=== PATIENT | female | born 1985 | race Caucasian/White ===

== ENCOUNTER 2020-03-24 16:03 | Outpatient (CLI) | payer OTHER, SELFPAY ==
[2020-03-24 16:19] LABS: Hematocrit 38.1 % (37.0-47.0); Hemoglobin 13.1 g/dL (12.0-15.0); Mean Corpuscular HGB Conc 34.4 g/dl (32-36); Mean Corpuscular Hemoglobin 29.6 pg (26-34); Mean Platelet Volume 10.2 fl (7.4-10.4); Platelet Count Result 220 k/mm3 (150-375); Red Blood Count 4.43 M/mm3 (4.2-5.4); Red Cell Distribution Width 11.7 % (11.5-14.5); White Blood Count 4.7 K/mm3 (4.5-10.0)
[2020-03-24 16:32] LABS: Blood Urea Nitrogen 7 mg/dL (7-17); Carbon Dioxide 30 mmol/L (22-30); Chloride 101 mmol/L (98-107); Estimated Glomerular Filt Rate > 60; Glucose 87 mg/dL (65-105); Potassium 3.8 mmol/L (3.4-5.0); Sodium 136 mmol/L (137-145)
== END 2020-03-24 16:04 | disposition home or self-care (01) ==
PROVIDERS: PCP Family Medicine; Visit Provider Physician Assistant Medical
DX: R19.7 Diarrhea, unspecified (principal)
CPT/HCPCS: 36415; 80048; 85027

== ENCOUNTER 2020-11-27 08:06 | Outpatient (CLI) | payer OTHER, SELFPAY ==
--- NOTE | 2020-11-27 08:26 | ECG_ITS ---
Measurements Intervals [place] Rate: 89 P: 64 OH: 128 QRS: 77 QRSD: 108 T: 36 QT: 340 QTc: 414 Interpretive Statements SINUS RHYTHM INCOMPLETE RIGHT BUNDLE BRANCH BLOCK NONSPECIFIC T-WAVE ABNORMALITY- INFERIOR LEADS BORDERLINE ECG Electronically Signed On 11-27-2020 8:46:57 HABILITATION TRAINING SPECIALIST by Roni Fry D.O.
[2020-11-27 08:30] LABS: Hematocrit 37.9 % (37.0-47.0); Hemoglobin 13.3 g/dL (12.0-15.0); Mean Corpuscular HGB Conc 35.1 g/dl (32-36); Mean Corpuscular Hemoglobin 30.4 pg (26-34); Mean Corpuscular Volume 86.7 fl (80-100); Mean Platelet Volume 10.5 fl (7.4-10.4); Platelet Count Result 231 k/mm3 (150-375); Red Blood Count 4.37 M/mm3 (4.2-5.4); Red Cell Distribution Width 12.1 % (11.5-14.5); White Blood Count 3.7 K/mm3 (4.5-10.0)
[2020-11-27 08:41] LABS: Anion Gap 4 mmol/L (8-16); Blood Urea Nitrogen 15 mg/dL (7-17); Calcium 8.6 mg/dL (8.4-10.2); Carbon Dioxide 27 mmol/L (22-30); Chloride 107 mmol/L (98-107); Cholesterol 129 mg/dL (0-200); Estimated Glomerular Filt Rate > 60; Glucose 80 mg/dL (65-105); HDL Direct 55 mg/dL; Potassium 4.1 mmol/L (3.4-5.0); Sodium 138 mmol/L (137-145); Triglycerides 53 mg/dL (<150)
[2020-11-27 08:52] LABS: LDL Cholesterol Direct 55 mg/dL
== END 2020-11-27 08:07 | disposition home or self-care (01) ==
PROVIDERS: PCP Family Medicine; Visit Provider Family Medicine
DX: R00.0 Tachycardia, unspecified (principal); Z13.220 Encounter for screening for lipoid disorders; I45.10 Unspecified right bundle-branch block
CPT/HCPCS: 36415; 80048; 80061; 84443; 85027; 93005

== ENCOUNTER 2021-01-05 12:27 | Outpatient (CLI) | payer OTHER, SELFPAY ==
--- NOTE | 2021-01-05 12:46 | ECHO_ITS ---
Patient Info Name: Elina Ackerman Age: 35 years : 1985 Gender: Female Ht: 62 in Wt: 120 lbs BSA: 1.55 m2 HR: 81 bpm BP: 118 / 74 mmHg Heart Rhythm: Sinus Rhythm Exam Date: 01/05/2021 1:09 PM Exam Location: [facility] Patient Status: Outpatient Admit Date: 01/05/2021 Staff Ordering Physician: Judy Norris Plastic Surgery Nurse: Emma Selby RDCS Attending Provider: Judy Norris Exam Type: CA echo doppler color flow Study Info Indications R00.0 - Tachycardia, unspecified Complete two-dimensional, color flow and Doppler transthoracic echocardiogram is performed. Summary 1. Complete two-dimensional, color flow and Doppler transthoracic echocardiogram is performed. 2. Left ventricular chamber dimension is normal. 3. Left ventricular systolic function is normal, estimated at 60-65%. 4. The left ventricular diastolic function is normal. 5. E/e' 4 is not elevated. 6. There is trace pulmonic regurgitation. Left Ventricle E/e' 4 is not elevated. Left ventricular chamber dimension is normal. Left ventricular systolic function is normal, estimated at 60-65%. The left ventricular diastolic function is normal. Right Ventricle Right ventricular chamber dimension is normal. Right ventricular systolic function is normal. Left Atria Left atrial chamber dimension is normal. Right Atria Right atrial chamber dimension is normal. Aortic Valve The aortic valve is trileaflet. There is no aortic valve stenosis. There is no aortic valve regurgitation. Pulmonic Valve There is trace pulmonic regurgitation. Mitral Valve There is no mitral valve stenosis. There is no mitral valve regurgitation. Tricuspid Valve There is no tricuspid valve regurgitation. Pericardium/Pleural There is no pericardial effusion. Inferior Vena Cava Normal inferior vena cava with >50% collapse upon inspiration consistent with normal right atrial pressure, 5 mmHg. Aorta The aortic root size at the sinus of Valsalva is normal. Left Ventricular Outflow Tract Name Value Normal LVOT 2D LVOT Diameter 2.1 cm LVOT Doppler LVOT Peak Velocity 93 cm/s LVOT Peak Gradient 2 mmHg LVOT Mean Gradient 1 mmHg LVOT VTI 17 cm LVOT VTI/AV VTI Ratio 0.8 LVOT Stroke Volume 60 ml LVOT CO 10.9 l/min LVOT CI 7.0 l/min/m2 Pulmonic Valve Name Value Normal RVOT Doppler RVOT Peak Gradient 2 mmHg PV Doppler PV Peak Velocity 80 cm/s PV Peak Gradient 3 mmHg Mitral Valve -
== END 2021-01-05 12:28 | disposition home or self-care (01) ==
PROVIDERS: PCP Family Medicine; Visit Provider Nurse Practitioner Family
DX: R00.0 Tachycardia, unspecified (principal); I45.10 Unspecified right bundle-branch block
CPT/HCPCS: 93306

== ENCOUNTER 2021-06-09 14:33 | Outpatient (CLI) | payer OTHER, SELFPAY ==
[2021-06-09 14:58] LABS: Hematocrit 37.5 % (37.0-47.0); Mean Corpuscular HGB Conc 34.7 g/dl (32-36); Mean Corpuscular Hemoglobin 30.2 pg (26-34); Mean Platelet Volume 10.9 fl (7.4-10.4); Platelet Count Result 254 k/mm3 (150-375); Red Blood Count 4.31 M/mm3 (4.2-5.4); Red Cell Distribution Width 11.5 % (11.5-14.5)
[2021-06-09 15:21] LABS: Anion Gap 7 mmol/L (8-16); Blood Urea Nitrogen 12 mg/dL (7-17); Calcium 9.2 mg/dL (8.4-10.2); Carbon Dioxide 27 mmol/L (22-30); Chloride 99 mmol/L (98-107); Estimated Glomerular Filt Rate > 60; Glucose 89 mg/dL (65-110); Potassium 3.7 mmol/L (3.4-5.0); Sodium 133 mmol/L (137-145)
[2021-06-09 15:54] LABS: Lymphocytes Absolute Manual 3.15 K/mm3 (1.1-4.5); Monocytes Absolute Manual 0.14 K/mm3 (0.1-0.90); Monocytes Percent Manual 2 % (3-9); Neutrophils Percent Manual 53 % (46-73); Platelet Estimate Adequate (Adequate); Total Cells Counted 100
== END 2021-06-09 14:34 | disposition home or self-care (01) ==
LOC: ANHLAB 14:35
PROVIDERS: PCP Family Medicine; Visit Provider Physician Assistant Medical
DX: R51.9 Headache, unspecified (principal)
CPT/HCPCS: 36415; 80048; 84443; 85025

== ENCOUNTER 2021-06-23 13:27 | Outpatient (CLI) | payer OTHER, SELFPAY ==
[2021-06-23 14:05] LABS: Anion Gap 8 mmol/L (8-16); Blood Urea Nitrogen 12 mg/dL (7-17); Calcium 9.4 mg/dL (8.4-10.2); Carbon Dioxide 27 mmol/L (22-30); Chloride 102 mmol/L (98-107); Estimated Glomerular Filt Rate > 60; Glucose 82 mg/dL (65-110); Potassium 3.9 mmol/L (3.4-5.0); Sodium 137 mmol/L (137-145)
== END 2021-06-23 13:28 | disposition home or self-care (01) ==
LOC: ANHLAB 13:29
PROVIDERS: PCP Family Medicine; Visit Provider Physician Assistant Medical
DX: E87.1 Hypo-osmolality and hyponatremia (principal)
CPT/HCPCS: 36415; 80048

== ENCOUNTER 2021-11-25 09:41 | Outpatient (CLI) | payer OTHER, SELFPAY ==
--- NOTE | 2021-11-25 11:00 | NEURO_ITS ---
Impression: # Complains of right hand/forearm pain. # Normal nerve conduction study. # No Carpal Tunnel Syndrome or ulnar neuropathy. # Normal needle/EMG exam. Nerve Conduction Studies Anti Sensory Summary Table Stim Site NR Peak (ms) P-T Amp (?V) Site1 Site2 Delta-P (ms) Dist (cm) Vega (m/s) Right Median Anti Sensory (2-3nd Digit) Wrist 2.8 62.3 Wrist 2-3nd Digit 2.8 14.0 50 Wrist 2.9 79.6 Wrist 2-3nd Digit 2.8 14.0 50 Right Radial Anti Sensory (Base 1st Digit) Wrist 2.3 42.4 Wrist Base 1st Digit 2.3 0.0 Right Ulnar Anti Sensory (5th Digit) Wrist 2.1 40.5 Wrist 5th Digit 2.1 14.0 67 Motor Summary Table Stim Site NR Onset (ms) O-P Amp (mV) Site1 Site2 Delta-0 (ms) Dist (cm) Vega (m/s) Right Median Motor (Abd Poll Brev) Wrist 3.3 13.1 Elbow Wrist 4.7 29.0 62 Elbow 8.0 11.8 Right Ulnar Motor (Abd Dig Minimi) Wrist 2.8 10.3 A Elbow Wrist 4.5 28.0 62 A Elbow 7.3 9.8 F Wave Studies NR F-Lat (ms) L-R F-Lat (ms) Right Median (Mrkrs) (Abd Poll Brev) 25.56 Right Ulnar (Mrkrs) (Abd Dig Min) 26.54 EMG Side Muscle Nerve Root Ins Act Fibs Amp Dur Recrt Comment Right 1stDorInt Ulnar C8-T1 Nml Nml Nml Nml Nml Right Ext Indicis Radial (Post Int) C7-8 Nml Nml Nml Nml Nml Right Ext Digitorum Radial (Post Int) C7-8 Nml Nml Nml Nml Nml Right BrachioRad Radial C5-6 Nml Nml Nml Nml Nml Right PronatorTeres Median C6-7 Nml Nml Nml Nml Nml Right Abd Poll Brev Median C8-T1 Nml Nml Nml Nml Nml MTDD
== END 2021-11-25 09:42 | disposition home or self-care (01) ==
LOC: ANHNEURO 09:43
PROVIDERS: PCP Family Medicine; Visit Provider Orthopaedic Surgery
DX: G56.20 Lesion of ulnar nerve, unspecified upper limb (principal)
CPT/HCPCS: 95886; 95909

== ENCOUNTER 2021-12-21 16:23 | Outpatient (CLI) | payer OTHER, SELFPAY ==
[2021-12-21 16:44] LABS: Anion Gap 4 mmol/L (8-16); Blood Urea Nitrogen 13 mg/dL (7-17); Calcium 8.8 mg/dL (8.4-10.2); Carbon Dioxide 31 mmol/L (22-30); Chloride 103 mmol/L (98-107); Estimated Glomerular Filt Rate > 60; Glucose 90 mg/dL (65-110); Potassium 3.9 mmol/L (3.4-5.0); Sodium 138 mmol/L (137-145)
== END 2021-12-21 16:24 | disposition home or self-care (01) ==
PROVIDERS: PCP Family Medicine; Visit Provider Nurse Practitioner Family
DX: E87.1 Hypo-osmolality and hyponatremia (principal)
CPT/HCPCS: 36415; 80048

== ENCOUNTER 2021-12-31 16:32 | Outpatient (CLI) | payer OTHER, SELFPAY ==
[2021-12-31 17:38] LABS: Vitamin D 25 Hydroxy 72.1 ng/mL
== END 2021-12-31 16:33 | disposition home or self-care (01) ==
LOC: ANHLAB 16:34
PROVIDERS: PCP Family Medicine; Visit Provider Obstetrics & Gynecology Gynecology
DX: E55.9 Vitamin D deficiency, unspecified (principal)
CPT/HCPCS: 36415; 82306

== ENCOUNTER 2022-01-06 00:13 | Day surgery (SDC) | payer OTHER, SELFPAY ==
[2021-12-28 08:41] VITALS: BMI 21.4
--- NOTE | 2021-12-28 08:50 | PC.NURSE ---
Report to the Outpatient Waiting Room, entrance under the green pavilion located off [facility], at time 0600 on date 01/06/22. OR Time: 0730. - You and your visitor will be asked a series of questions to screen for COVID 19 for your protection. - A mask is required within the hospital. One visitor will be allowed to accompany the patient into the hospital. Patients visitor will be instructed to remain with patient at all times or leave the building. We will allow the visitor to come back to the postoperative area when patient is ready. Preoperative COVID Testing Requirements: No COVID Test needed if: (proof is required; if not received patient will have Rapid Test prior to entry) - Patient has received COVID Vaccine at least 14 days prior to procedure date or - Patient has positive COVID test result within last 90 days of surgery date. COVID Test needed if above criteria is not met Patients may have clear liquids (water, carbonated beverages, clear teas, apple juice) until 3 hours prior to surgery with a maximum of 20 ounces. - No food from midnight until time of surgery Take the following medications with a SIP of water the morning of surgery: MILNACIPRAN, TRAMADOL (IF NEEDED) Medications to discontinue per physician: VITAMINS/SUPPLEMENTS Date to take last dose: 01/02/22 Please no make-up, nail thai, hairspray, perfume, deodorant, or body powder the day of surgery. No jewelry (including any body piercings) or valuables the day of surgery, leave them at home. Please take a shower or bath the night before, or the morning of, surgery with an antibacterial soap. Wear comfortable, loose fitting clothing. - Jewelry must be removed prior to entering the operating room. Rings and piercings that are not removed may be cut off. - The hospital will not accept responsibility for valuables. - Please leave all valuables, including medications, at home the day of surgery. If you are going home after surgery, a licensed car pick up driver must drive you home. - NO public transportation without another adult. - We recommend that an adult stay with you for 24 hours following discharge. - We also recommend that you do not drive, make important decision, drink alcoholic beverages, or take any drugs that were not prescribed by your health care provider for at least 24 hours after your discharge time. Follow any additional instructions given to you from your surgeon. Telephone instructions given to BABATUNDE LEWIS and asked if any additional questions and then verbalized understanding. Patient advised to call surgeon office or pre surgery nurse liaison [phone] if any additional questions.
[2022-01-06] VITALS (8 sets, daily range): BP systolic 104–128; BP diastolic 68–77; PULSE 94–108; RESP 14–16; TEMP 36.2–36.7; O2SAT 97–100
[2022-01-06] MEDS: LACTATED RINGERS 1,000 ML 30 ML IV CONT (06:25)
[2022-01-06] MEDS: ACETAMINOPHEN 500 MG TABLET 1000 MG PO (06:27)
[2022-01-06] MEDS: KETOROLAC 15 MG/ML VIAL (*BKC) IV PUSH (06:27)
--- NOTE | 2022-01-06 07:12 | WPDHPUPDATE1 ---
History and Physical Update Update Date/Time: 01/06/22 07:12 History and Physical has been reviewed, including an updated exam of the patient. There are NO changes in the patient's condition. Risks, benefits, and alternatives have been discussed and questions answered. Patient agrees to proceed with procedure.
--- NOTE | 2022-01-06 07:17 | WPDANESEPPF ---
Anes - Initial Pre Proc Eval Procedure: Operation Date: 01/06/22 07:30 Proposed Procedures p Right Ulnar Nerve Decompression - Kranthi Rich MD Date/Time: 01/06/22 07:17 Surgeon: Kranthi Rich MD Pre Op Diagnosis: right ulnar neuropathy Patient Data Age: 36 Gender: F Height: 1.57 m Weight: 53.3 kg Last Vital Signs Temp 98.1 F 01/06/22 06:05 Pulse 108 H 01/06/22 06:05 Resp 16 01/06/22 06:05 BP 128/77 01/06/22 06:05 Pulse Ox 100 01/06/22 06:05 Allergies Allergy/AdvReac Type Severity Reaction Status Date / Time No Known Allergies Verified 12/28/21 08:39 Home Medications Medication Instructions Recorded Confirmed Type milnacipran 50 mg tablet 50 mg PO BID #180 tablet 08/26/21 01/06/22 Rx celecoxib 200 mg capsule 200 mg PO DAILY #90 cap 11/30/21 01/06/22 Rx tramadol 50 mg tablet 50 mg PO Q4H PRN #120 tablet 12/09/21 01/06/22 Rx ascorbic acid (vitamin C) [Vitamin 500 mg PO DAILY 12/28/21 01/06/22 History C] cetirizine [Zyrtec] 10 mg PO DAILY 12/28/21 01/06/22 History echinacea 200 mg PO DAILY 12/28/21 01/06/22 History lactobacillus combo no.11 1 cap PO DAILY 12/28/21 01/06/22 History [Probiotic] fluticasone propionate [Flonase] 1 spray INTRANASAL DAILY 01/06/22 01/06/22 History Patient hx anesthesia problems: none Family hx anesthesia problems: none Results Review: All pre-operative results and documents have been reviewed as part of the pre-operative evaluation. [facility] Past Medical History Medical History Fibromyalgia Screening for lipid disorders Tachycardia Surgical History Surgical History History of section (~2012) History of cholecystectomy (~2004) History of tonsillectomy (~2011) Family History Family History Father Hypertension Grandparent Hypertension Cerebrovascular accident Other Family history of arthritis Family history of rheumatoid arthritis Social History Social History Smoking status: Never smoker Alcohol intake: never Substance use: never Substance use type: does not use Living arrangements: with family Gender identity (if verbalized by the patient): Female Sexual Orientation (if Verbalized by the Patient): Straight or Heterosexual Spiritual care concerns: No Anes - Eval Final PreProcedure Day of Procedure 01/06/22 07:17 Patient weight: normal Heart: regular rate and rhythm Lungs: clear to auscultation Airway: Mallampati scale class II Neurological: alert and oriented Last oral intake: >/= 8 hours ASA classification: II Emergent: no Anesthetic plan: proceed Anesthesia type and monitoring: general LMA and standard monitoring Results Review: All pre-operative results and documents have been reviewed as part of the pre-operative evaluation. Informed Consent: The patient's anesthetic plan and its attendant risks and benefits were discussed with the patient/family/POA. Questions were solicited and answers provided to the satisfaction of the patient/family/POA.
[2022-01-06] MEDS: ceFAZolin 2 GM/D5W 50 ML 2 GM/50 ML BAG IVPB (07:27)
[2022-01-06] MEDS: SCOPOLAMINE 1.5 MG PATCH TRANSDERM (07:35)
[2022-01-06] MEDS: fentaNYL CITRATE INJ (*CRX) 100 MCG/2 ML VIAL 25 MCG IV PUSH ×3 (09:00→09:11)
[2022-01-06] MEDS: oxyCODONE HCL (*CRX) 5 MG TAB IR PO (09:50)
--- NOTE | 2022-01-06 17:16 | P.OP_ITS ---
Procedure Note - Detailed Date of Procedure 01/06/22 Pre-op Diagnosis Right ulnar neuropathy at the elbow Post-op Diagnosis Same Procedure Performed Right cubital tunnel decompression Surgeon Kranthi Rich MD Industrial Manufacturing Technician Malia Carlos PA-C Anesthesia General Description of Procedure Operative details. After sedation was administer, the arm was prepped and draped in the usual sterile fashion. The proposed incision was marked using typical anatomic landmarks. The limb was exsanguinated and the tourniquet inflated to 250 millimeters of mercury. A longitudinal incision was created posterior to the medial epicondyle. Careful dissection was brought down to the ulnar nerve. It was identified proximally and dissected to the cubital tunnel retinaculum. Careful dissection released the cubital tunnel retinaculum. The dissection was carried out to the flexor carpi the palmaris. The 1st motor branch was carefully identified and protected. Attention was turned proximally in the nerve was released proximal to the intermuscular septum. The arm was flexed and the nerve was assessed. The nerve was stable. The course of the nerve was very nice without evidence of compression or instability. The tourniquet was released to assure that there was no significant bleeding. Meticulous hemostasis was maintained. The subcutaneous tissues were closed with interrupted 3-0 Monocryl suture followed by running 4-0 Monocryl suture and Steri-Strips. Sterile dressing was applied with a soft splint at the wrist and a hard splint at the elbow. The patient was extubated and brought to the recovery room in stable condition. Estimated Blood Loss -1.0 Pathology None sent Complications No immediate complications Condition Stable Disposition PACU
== END 2022-01-06 10:25 | disposition home or self-care (01) ==
PROVIDERS: PCP Family Medicine; Visit Provider Orthopaedic Surgery
PROC: (CPT 64718; principal; 2022-01-06 07:30)
DX: G56.21 Lesion of ulnar nerve, right upper limb (principal); M79.7 Fibromyalgia
CPT/HCPCS: 64718; A4565; A9270; J0690; J1100; J1885; J2250; J2405; J2704; J3010; J7120

== ENCOUNTER 2022-05-19 13:27 | Outpatient (CLI) | payer OTHER, SELFPAY ==
[2022-05-19 14:54] LABS: Anion Gap 8 mmol/L (8-16); Blood Urea Nitrogen 12 mg/dL (7-17); Calcium 9.3 mg/dL (8.4-10.2); Carbon Dioxide 29 mmol/L (22-30); Chloride 99 mmol/L (98-107); Estimated Glomerular Filt Rate > 60; Glucose 84 mg/dL (65-110); Sodium 136 mmol/L (137-145)
== END 2022-05-19 13:28 | disposition home or self-care (01) ==
LOC: ANHLAB 13:28
PROVIDERS: PCP Family Medicine; Visit Provider Nurse Practitioner Family
DX: E87.1 Hypo-osmolality and hyponatremia (principal); R51.9 Headache, unspecified; Z13.29 Encounter for screening for other suspected endocrine disorder
CPT/HCPCS: 36415; 80048; 84443

== ENCOUNTER 2022-06-24 13:44 | Outpatient (CLI) | payer OTHER, SELFPAY ==
--- NOTE | ~2022-06-24 | MR_ITS ---
EXAMINATION: MR brain/brain stem wo/w con DATE: 06/24/2022 14:27 INDICATION: Headache. TECHNIQUE: Magnetic resonance imaging (MRI) of the brain and brainstem was performed without and with 10 mL MultiHance intravenous contrast. COMPARISON: None. FINDINGS: The cerebellar tonsils extend 9 mm inferior to foramen magnum, consistent with Chiari I mal formation. There are approximately 11 scattered foci of increased T2-weighted signal intensity in the cerebral white matter. There is no acute ischemic infarct or intracranial hemorrhage. The ventricles are normal. The orbits are normal. The mastoid air cells are normal. There is mild mucosal thickenin g in the maxillary sinuses. IMPRESSION: 1. Chiari I malformation. 2. Mild nonspecific cerebral white matter disease. The differential diagnosis includes premature gym manager gonzalo small vessel ischemic disease (especially if the patient has cardiovascular risk factors), demyel inating disease such as multiple sclerosis, drug abuse, vasculitis, or reactive astrocytosis (gliosis ) secondary to nonspecific etiology. Reviewed, dictated and finalized at location A. IMPRESSION: 1. Chiari I malformation. 2. Mild nonspecific cerebral white matter disease. The differential diagnosis i ncludes premature chronic small vessel ischemic disease (especially if the radha ent has cardiovascular risk factors), demyelinating disease such as multiple sc lerosis, drug abuse, vasculitis, or reactive astrocytosis (gliosis) secondary t o nonspecific etiology.
== END 2022-06-24 13:45 | disposition home or self-care (01) ==
LOC: ANHIMG 13:46
PROVIDERS: PCP Family Medicine; Visit Provider Nurse Practitioner Family
DX: R51.9 Headache, unspecified (principal); R93.0 Abnormal findings on diagnostic imaging of skull and head, not elsewhere classified
CPT/HCPCS: 70553; A9577

== ENCOUNTER 2022-07-13 15:21 | Outpatient (CLI) | payer OTHER, SELFPAY ==
--- NOTE | ~2022-07-13 | MR_ITS ---
EXAMINATION: MR thoracic spine wo/w con DATE: 07/13/2022 16:41 INDICATION: Chiari I malformation. Headache. TECHNIQUE: Magnetic resonance imaging (MRI) of the thoracic spine was performed without and with 10 m L MultiHance intravenous contrast. COMPARISON: None FINDINGS: Bone alignment is normal. Vertebral body heights and intervertebral disc heights are normal . The discs do not extend beyond the endplate margins. The facet joints are normal and thoracic spine . No neural foraminal stenosis or central canal stenosis. The spinal cord signal intensity is normal. The conus medullaris is at L1. IMPRESSION: 1. Normal thoracic spine. Reviewed, dictated and finalized at location A. IMPRESSION: 1. Normal thoracic spine.
--- NOTE | ~2022-07-13 | MR_ITS ---
EXAMINATION: MR cervical spine wo/w con DATE: 07/13/2022 16:41 INDICATION: Chiari I malformation. Headache. TECHNIQUE: Magnetic resonance imaging (MRI) of the cervical spine was performed without and with 10 m L MultiHance intravenous contrast. COMPARISON: None FINDINGS: Bone alignment is normal. Vertebral body heights are normal. Intervertebral disc heights ar e normal. The cerebellar tonsils extend 7 mm inferior to foramen magnum, consistent with Chiari I mal formation. The spinal cord signal intensity is normal. No syrinx. The following disc levels are speci fically discussed: C2-C3: The disc does not extend beyond the endplate margin. There is no uncovertebral joint osteoarth ritis. There is mild right facet joint osteoarthritis. There is no neural foraminal stenosis. There i s no central canal stenosis. C3-C4: The disc does not extend beyond the endplate margin. There is no uncovertebral joint osteoarth ritis. There is mild bilateral facet joint osteoarthritis. There is no neural foraminal stenosis. The re is no central canal stenosis. C4-C5: There is a central protrusion. There is no uncovertebral joint osteoarthritis. There is mild b ilateral facet joint osteoarthritis. There is no neural foraminal stenosis. There is no central canal stenosis. C5-C6: The disc is bulging. There is moderate bilateral uncovertebral joint osteoarthritis. There is mild bilateral facet joint osteoarthritis. There is no neural foraminal stenosis. There is no central canal stenosis. C6-C7: There is a central extrusion. There is no uncovertebral joint osteoarthritis. There is mild ri ght facet joint osteoarthritis. There is no neural foraminal stenosis. There is mild central canal st enosis. C7-T1: The disc does not extend beyond the endplate margin. There is no uncovertebral joint osteoarth ritis. There is moderate bilateral facet joint osteoarthritis. There is no neural foraminal stenosis. There is no central canal stenosis. IMPRESSION: 1. Mild cervical spondylosis. 2. Chiari 1 malformation. Reviewed, dictated and finalized at location A.
== END 2022-07-13 15:22 | disposition home or self-care (01) ==
PROVIDERS: PCP Family Medicine; Visit Provider Psychiatry & Neurology Neurology
DX: R51.9 Headache, unspecified (principal); M47.812 Spondylosis without myelopathy or radiculopathy, cervical region; G93.5 Compression of brain
CPT/HCPCS: 72156; 72157; A9577

== ENCOUNTER 2023-01-12 12:11 | Outpatient (CLI) | payer OTHER, SELFPAY ==
[2023-01-12 13:34] LABS: Vitamin D 25 Hydroxy 86.7 ng/mL
== END 2023-01-12 12:12 | disposition home or self-care (01) ==
LOC: ANHLAB 12:13
PROVIDERS: PCP Family Medicine; Visit Provider Advanced Practice Midwife
DX: E55.9 Vitamin D deficiency, unspecified (principal)
CPT/HCPCS: 36415; 82306

== ENCOUNTER 2023-05-10 11:15 | Outpatient (CLI) | payer OTHER, SELFPAY ==
--- NOTE | ~2023-05-10 | MMUS_ITS ---
EXAMINATION: MM diagnostic jonathan BI w wally, US breast RT limited HISTORY: Right breast pain TECHNIQUE: Craniocaudal, mediolateral, and mediolateral oblique 3-D tomosynthesis images of the breas ts were performed and synthetic 2-D images were generated. CAD analysis was submitted and interpreted . High resolution limited right breast ultrasound was performed. COMPARISON: None, baseline BREAST PARENCHYMAL COMPOSITION: The breasts are extremely dense, which lowers the sensitivity of mamm ography. FINDINGS: MAMMOGRAPHIC FINDINGS: No suspicious mass, calcification, or architectural distortion are identified in either breast to sug gest malignancy. No mammographic correlate is identified for the patient's right breast pain. ULTRASOUND: There is no evidence of focal abnormal solid or cystic mass in the vicinity of the patient's right br east pain. IMPRESSION: 1. No specific mammographic or sonographic correlate is identified for the patient's right breast james n Further evaluation at this time should be based on clinical assessment. Continued follow-up physica l examination is recommended. 2. Recommend routine screening mammography beginning at age 40. BI-RADS Category 1: Negative Reviewed, dictated and finalized at location A. IMPRESSION: 1. No specific mammographic or sonographic correlate is identified for the radha ent's right breast pain Further evaluation at this time should be based on clin ical assessment. Continued follow-up physical examination is recommended. 2. Recommend routine screening mammography beginning at age 40. BI-RADS Category 1: Negative
== END 2023-05-10 11:16 | disposition home or self-care (01) ==
PROVIDERS: PCP Family Medicine; Visit Provider Nurse Practitioner
DX: N64.4 Mastodynia (principal); N64.59 Other signs and symptoms in breast
CPT/HCPCS: 76642; 77062; 77066; G0279

== ENCOUNTER 2023-07-11 08:03 | Outpatient (CLI) | payer OTHER, SELFPAY ==
[2023-07-11 08:56] LABS: Alanine Aminotransferase 186 U/L (6-35); Albumin Level 4.5 g/dL (3.5-5.1); Alkaline Phosphatase 80 U/L (38-126); Anion Gap 5 mmol/L (8-16); Aspartate Amino Transferase 79 U/L (14-36); Bilirubin,Total 0.4 mg/dL (0.2-1.3); Blood Urea Nitrogen 9 mg/dL (7-17); Calcium 8.8 mg/dL (8.4-10.2); Carbon Dioxide 30 mmol/L (22-30); Chloride 103 mmol/L (98-107); Cholesterol 148 mg/dL (0-200); Estimated Glomerular Filt Rate > 60; Glucose 76 mg/dL (65-110); HDL Direct 59 mg/dL; Magnesium 2.1 mg/dL (1.6-2.3); Potassium 3.9 mmol/L (3.4-5.0); Sodium 138 mmol/L (137-145); Triglycerides 68 mg/dL (<150)
[2023-07-11 09:07] LABS: LDL Cholesterol Direct 71 mg/dL
== END 2023-07-11 08:04 | disposition home or self-care (01) ==
LOC: ANHLAB 08:04
PROVIDERS: PCP Family Medicine; Visit Provider Nurse Practitioner Family
DX: R51.9 Headache, unspecified (principal); Z13.29 Encounter for screening for other suspected endocrine disorder; E87.1 Hypo-osmolality and hyponatremia
CPT/HCPCS: 36415; 80053; 80061; 83735; 84443

== ENCOUNTER 2023-07-14 09:15 | Outpatient (RCR) | payer OTHER, SELFPAY ==
--- NOTE | 2023-06-26 13:34 | OTOPEVAL1 ---
Assessment and note entered by LEODAN Villasenor/Ildefonso, CHT Evaluation Information Assessment Status Evaluation Diagnosis Ulnar nerve entrapment, right elbow; right carpal tunnel release Subjective Information 06/07/23: ulnar nerve transposition and carpal tunnel release Patient presents today in a long arm orthosis, positioning the right elbow resting at 130 degrees with the wrist in neutral. She is right handed. Reports paresthesias in the small and ring fingers comes and goes . No longer reporting paresthesias in the radial 3 digits. States she is favoring the left UE for ADL tasks at this time. Unable to wash her face with the right due to decreased elbow flexibility. She is also limited on lifting per MD orders. Reported Pain Level Pain Score 0: Self Report Additional Pain Score Comments No pain at rest. Just some pulling and tightness . Assessment OT Clinical Summary Patient referred to outpatient OT with a decline in right UE use following right ulnar transposition at the elbow as well as right carpal tunnel release. She presents today with some residual stiffness and weakness from being post surgical, immobilized, and using the UE less during ADLs. Skilled OT indicated to maximize functional flexibilty and strength through HEP instruction and progression, use of manual therapy techniques, modalities, and therapeutic exercises and activities. Plan of Care Interventions Therapeutic Exercise,Manual Therapy,Therapeutic Activities,Hot Pack/Cold Pack,Ultrasound,Paraffin OT Services Indicated Yes Treatment Frequency and 1x/week for 5 weeks Duration These treatments will address the objective and functional deficits as defined above. The patient will be advanced safely and appropriately in order for the patient to progress towards his/her prior level of function. Additional exercises will be introduced and as well as a comprehensive home exercise program upon discharge, if needed, ?to ensure carryover of functional gains achieved in the clinic. This treatment plan has been reviewed and agreement upon by the patient.
--- NOTE | 2023-06-26 13:34 | OPREHPOC ---
Outpatient Therapy Plan of Care This is a Multidisciplinary Plan of Care that may contain components documented by all disciplines (PT, OT, and ST.) OT Problem 1 OT Problem #1 Knowledge Deficit OT Goal 1 Goal 1. Patient to be independent with instructed materials. Target Visit 5 OT Problem 2 OT Problem #2 Impaired Range of Motion OT Goal 1 Goal Increase active ROM of the right UE: - elbow flexion to 135 - wrist extension to 75
--- NOTE | 2023-07-31 14:11 | OTOPDC ---
Assessment and note entered by Blane Torres, LEODAN/Ildefonso, CHT Discharge Summary 07/31/23 OT Clinical Summary Elina is s/p right ulnar nerve transposition and carpal tunnel release (06/07/23). She progressed to weaning out of the long arm orthosis and ROM returned to normal limits. She reports she is doing well with using her arm and no longer experiencing any ADL limitations. She called today to report that she will continue with her home program and she plans to go back to work at the beginning of August. No further skilled OT indicated at this time. D/C.
== END 2023-07-31 15:02 | disposition home or self-care (01) ==
LOC: ANHOT 09:15
PROVIDERS: PCP Family Medicine
DX: G56.21 Lesion of ulnar nerve, right upper limb (principal); G56.01 Carpal tunnel syndrome, right upper limb
CPT/HCPCS: 97018; 97110; 97140; 97166; 99199

== ENCOUNTER 2023-08-07 10:06 | Outpatient (CLI) | payer OTHER, SELFPAY ==
[2023-08-07 10:54] LABS: Alanine Aminotransferase 21 U/L (6-35); Albumin Level 4.5 g/dL (3.5-5.1); Alkaline Phosphatase 78 U/L (38-126); Aspartate Amino Transferase 24 U/L (14-36); Bilirubin,Total 0.3 mg/dL (0.2-1.3)
[2023-08-07 11:31] LABS: Hepatitis B Surface Antigen Negative (Negative)
[2023-08-07 11:49] LABS: Hepatitis C Virus Antibody Negative (Negative)
[2023-08-07 12:01] LABS: Hepatitis B Core IgM Result Negative (Negative)
[2023-08-07 12:52] LABS: HAV RESULT Negative (Negative)
[2023-08-09 15:30] LABS: GGT 30 U/L (3-50)
== END 2023-08-07 10:07 | disposition home or self-care (01) ==
LOC: ANHLAB 10:06
PROVIDERS: PCP Family Medicine; Visit Provider Nurse Practitioner Family
DX: R74.8 Abnormal levels of other serum enzymes (principal)
CPT/HCPCS: 36415; 80074; 80076; 82977

== ENCOUNTER 2023-10-22 12:42 | Emergency (ER) | payer OTHER, SELFPAY ==
[2023-10-22 12:53] VITALS: BP 122/75; PULSE 96; RESP 16; TEMP 36.6; O2SAT 100
--- NOTE | 2023-10-22 12:55 | ED.GENADULT ---
HPI - General Adult General Chief complaint: Upper Respiratory Infection Stated complaint: sinus and chest congestion Time Seen by Provider: 10/22/23 12:55 Source: patient Mode of arrival: ambulatory Limitations: no limitations History of Present Illness HPI narrative: 38-year-old female patient presents to the [facility] with complaints of 9 days of congestion and sinus pressure. Patient states she gets this often and normally can take it with some Mucinex and Sudafed which is what she has been taking. Patient states she does take Flonase daily. Denies fevers, body aches or chills. Denies any ongoing cough. Denies chest pain or shortness of breath. Denies any abdominal pain, nausea, vomiting or diarrhea. Related Data Home Medications Medication Instructions Recorded Confirmed lactobacillus combo no.11 15 1 cap PO DAILY 12/28/21 10/22/23 billion cell sprinkle capsule (Probiotic) ergocalciferol (vitamin D2) 1,000 5,000 tablet PO DAILY 01/06/22 10/22/23 unit tablet fluticasone propionate 50 1 spray intranasal DAILY 01/06/22 10/22/23 mcg/actuation nasal spray,suspension magnesium 500 mg tablet 500 mg PO DAILY 01/06/22 10/22/23 levocetirizine 5 mg tablet (Xyzal) 5 mg PO DAILY 06/21/23 10/22/23 Allergies Allergy/AdvReac Type Severity Reaction Status Date / Time No Known Allergies Allergy Verified 10/22/23 12:53 Review of Systems Review of Systems: CONSTITUTIONAL: Denies fever, chills, or sweats. EYES: Denies visual changes, redness, or discharge. ENT: Positive rhinorrhea, congestion, denies sore throat, positive bilateral ear pressure. CARDIOVASCULAR: Denies chest pain, palpitations, or edema. RESPIRATORY: positive mild intermittent cough , denies dyspnea. GASTROINTESTINAL: Denies abdominal pain, nausea, vomiting, or diarrhea. GENITOURINARY: Denies dysuria or hematuria. SKIN: Denies rash or itching. MUSCULOSKELETAL: Denies back pain, joint pain, or myalgia. NEUROLOGIC: Denies headache, numbness, or weakness. PSYCHIATRIC: Denies anxiety or depression. [facility] Past Medical History Medical History BMI 20.0-20.9, adult Body mass index [BMI] 22.0-22.9, adult Fibromyalgia Screening for lipid disorders Tachycardia Ulnar nerve entrapment at elbow Surgical History Surgical History History of section (~2012) History of cholecystectomy (~2004) History of elbow surgery (~01/06/22) Right ulnar nerve decompression History of tonsillectomy (~2011) Family History Family History Father Hypertension Grandparent Hypertension Cerebrovascular accident Mother No problems noted. Sibling No problems noted. Other Family history of arthritis Family history of rheumatoid arthritis Social History Social History Smoking status: Never smoker Second hand tobacco smoke exposure: No Alcohol intake: former Substance use: never Substance use type: does not use Lack of Transportation: No Lack of Food: Never True Current Housing: I Have Housing Concerned About Future Housing: No Difficulty Paying Gas/Electric Bills: No Difficulty Paying for Meds: No Currently Unemployed: No Education: Associate Degree Difficulty w/ Childcare or Family Care: No Living arrangements: with family Occupation/Education: occupation Additional occupation/education comments: RN [employer] Gender identity (if verbalized by the patient): Female Sexual Orientation (if Verbalized by the Patient): Straight or Heterosexual Spiritual care concerns: No Comments At the time of my signature I agree with nursing past medical history, surgical, social, and family history. There is no relevant family history pertinent to the presenting complaint. Exam
== END 2023-10-22 13:13 | disposition home or self-care (01) ==
PROVIDERS: Emergency Provider Nurse Practitioner Family; PCP Family Medicine
DX: J32.9 Chronic sinusitis, unspecified (principal); Z79.899 Other long term (current) drug therapy
CPT/HCPCS: 99213; G0463

== ENCOUNTER 2024-01-30 08:21 | Outpatient (CLI) | payer OTHER, SELFPAY ==
[2024-01-30 09:04] LABS: Basophils Percent Auto 0.9 % (0.2-1.2); Eosinophils Absolute Auto 0.1 K/mm3 (0-0.3); Eosinophils Percent Auto 2.4 % (0-4.4); Hematocrit 41.7 % (37.0-47.0); Immature Granulocyte Absolute 0.01 K/mm3 (0.00-0.031); Immature Granulocyte Percent A 0.2 % (0-0.5); Lymphocytes Absolute Auto 1.46 K/mm3 (0.9-3.2); Lymphocytes Percent Auto 34.4 % (18.3-44.2); Mean Corpuscular HGB Conc 33.6 g/dl (32-36); Mean Corpuscular Hemoglobin 30.3 pg (26-34); Mean Corpuscular Volume 90.3 fl (80-100); Monocytes Absolute Auto 0.4 K/mm3 (0.1-0.6); Monocytes Percent Auto 9.4 % (2.6-8.5); Neutrophils Absolute Auto 2.2 K/mm3 (1.3-6.7); Neutrophils Percent Auto 52.7 % (45.5-73.1); Platelet Count Result 264 k/mm3 (150-375); Red Blood Count 4.62 M/mm3 (4.2-5.4); Red Cell Distribution Width 11.6 % (11.5-14.5); White Blood Count 4.3 K/mm3 (4.5-10.0)
[2024-01-30 09:23] LABS: Alanine Aminotransferase 209 U/L (6-35); Albumin Level 4.5 g/dL (3.5-5.1); Alkaline Phosphatase 85 U/L (38-126); Anion Gap 6 mmol/L (4-12); Aspartate Amino Transferase 115 U/L (14-36); Bilirubin,Total 0.5 mg/dL (0.2-1.3); Blood Urea Nitrogen 11 mg/dL (7-17); Calcium 9.2 mg/dL (8.4-10.2); Carbon Dioxide 29 mmol/L (22-30); Chloride 105 mmol/L (98-107); Cholesterol 143 mg/dL (0-200); Estimated Glomerular Filt Rate > 60; Glucose 84 mg/dL (65-110); HDL Direct 55 mg/dL; Magnesium 2.3 mg/dL (1.6-2.3); Potassium 3.8 mmol/L (3.4-5.0); Sodium 140 mmol/L (137-145); Triglycerides 76 mg/dL (<150)
[2024-01-30 09:29] LABS: Iron 110 ug/dL (37-170)
[2024-01-30 09:35] LABS: LDL Cholesterol Direct 75 mg/dL
[2024-01-30 09:41] LABS: Percent Iron Saturation 32 % (20-50)
[2024-01-30 10:29] LABS: Folic Acid 10.5 ng/mL (2.76->20)
[2024-01-30 10:58] LABS: Vitamin D 25 Hydroxy 66.5 ng/mL
== END 2024-01-30 08:22 | disposition home or self-care (01) ==
LOC: ANHLAB 08:22
PROVIDERS: PCP Family Medicine; Visit Provider Nurse Practitioner Adult Health
DX: M79.7 Fibromyalgia (principal); R53.83 Other fatigue; E83.42 Hypomagnesemia; Z13.220 Encounter for screening for lipoid disorders
CPT/HCPCS: 36415; 80053; 80061; 82306; 82607; 82746; 83540; 83550; 83735; 84443; 85025

== ENCOUNTER 2024-02-20 15:48 | Outpatient (CLI) | payer OTHER, SELFPAY ==
[2024-02-20 16:27] LABS: Alanine Aminotransferase 23 U/L (6-35); Albumin Level 4.5 g/dL (3.5-5.1); Alkaline Phosphatase 81 U/L (38-126); Aspartate Amino Transferase 24 U/L (14-36); Bilirubin,Total 0.3 mg/dL (0.2-1.3)
== END 2024-02-20 15:49 | disposition home or self-care (01) ==
LOC: ANHLAB 15:49
PROVIDERS: PCP Family Medicine; Visit Provider Nurse Practitioner Adult Health
DX: R79.89 Other specified abnormal findings of blood chemistry (principal)
CPT/HCPCS: 36415; 80076

== ENCOUNTER 2025-02-10 08:28 | Outpatient (CLI) | payer OTHER, SELFPAY ==
--- OUTSIDE RECORDS SUMMARY | 2025-02-10 08:43 | XMS_ITS | Clinical Summary ---
Author Organization [facility] Healthcare Address [address] [place] [id number] Care Team Providers Care Windscreen Fitter Name Role Phone Jarod Aguila MD Primary Care Provider [phone] Allergies No known active allergies Medications traMADol (ULTRAM) 50 mg tablet take 1 tablet by oral route every 6 hours as needed 0 0 09/29/20 15 Active Additional Information Patient taking differently:50 mgoral As needed, pain, Indications: Pain, Informant: Self, Reported on 05/08/2023 celecoxib (CeleBREX) 200 mg capsuleIndicat ions:Pain Take 1 capsule (200 mg total) by mouth every morning 12/11/19 23 Active Savella 50 mg tabletIndicati ons:Pain Take 1 tablet (50 mg total) by mouth 2 (two) times a day 12/10/19 23 Active levocetirizine (XYZAL) 5 mg tabletIndicati ons:Allergic Rhinitis Take 1 tablet (5 mg total) by mouth nightly Active fluticasone propionate (FLONASE) 50 mcg/actuation nasal sprayIndicatio ns:Allergic Rhinitis Administer 2 sprays into each nostril every morning Active magnesium oxide 400 mg magnesium capsuleIndicat ions:OTC Take 1 capsule by mouth nightly Active cholecalcifero l (VITAMIN D-3) 5,000 unit capsuleIndicat ions:Vitamin D Deficiency Take 1 capsule (5,000 Units total) by mouth daily with lunch Active acidophilus-pe ctin, citrus 100 million cell-10 mg capsuleIndicat ions:OTC Take 1 capsule by mouth daily with lunch Active DULoxetine DR MILLSALTA) 60 mg capsule Take 1 capsule (60 mg total) by mouth daily 06/02/20 20 Active cetirizine (ZyrTEC) 10 mg capsule Oral Active fluconazole (DIFLUCAN) 150 mg tablet Take 1 tablet (150 mg total) by mouth daily Take one tab now. Repeat in 7 days if symptoms persist. 2 tablet 10/12/20 24 025 Discontinued amoxicillin-cl avulanate (AUGMENTIN) 875-125 mg per tablet Take 1 tablet by mouth 2 (two) times a day for 10 days 20 tablet 01/26/20 25 025 fluconazole (DIFLUCAN) 150 mg tablet Take 1 tablet (150 mg total) by mouth once for 1 dose Take one tab now. Repeat in 7 days if symptoms persist. 2 tablet 01/26/20 25 025 Active Problems Problem Noted Date Diagnosed Date Acute non-recurrent pansinusitis 01/25/2025 Assessment & Plan (01/25/2025 12:46 PM CDT): Due to length of illness we will treat with antibiotic, please complete the whole course of antibiotics-no leftovers. Prescription for antibiotics sent. Reviewed potential benefits and potential side effects of augmentin. Aware to complete full course of antibiotic. To continue otc medications. Discussed nasal saline rinses/neti pots. Discussed need to increase fluid intake. May use 1 teaspoon honey every 4 hours as needed for cough, encourage use of hot tea or hot water with honey. May use vicks vapo rub on chest and bottom of feet before bed. Cool mist humidifier in bedroom. Lots of water, rest and handwashing, no sharing cups or utensils. If symptoms worsen including but not limited to shortness of breath, chest pain and/or increasing pain please notify office or present to Emergency Department. Cubital tunnel syndrome on right 03/15/2023 Carpal tunnel syndrome on right 03/15/2023 Encounters Date Type Department Care Team Description 01/25/2025 12:45 PM CDT Telemedicine [facility] Medical Group Virtual Care [address] [place] [phone] Shefali Centeno NP Acute non-recurrent pansinusitis (Primary Dx) 01/25/2025 Patient Self-Triage [facility] HealthCare/ Physicians [facility] [phone] Son Heath Provider from Last 3 Months Surgical History Surgery Date Site/Laterality Comments CHOLECYSTECTOMY 2005 SECTION 2013 TONSILLECTOMY 2012 ULNAR NERVE REPAIR 12/14/2021 - 01/13/2022 decompression Medical History Medical History Date Comments Sinusitis PONV (postoperative nausea and vomiting) scopolamine patch helpful Motion sickness Migraines Ulnar nerve compression Fibromyalgia Family History Medical History Relation Name Comments Hypertension Father Hypertension; Hypertension Maternal Grandmother Hyperte nsion; Hypertension Other Family history of Hypertension; Heart attack Paternal Grandfather Myocard ial Infarction; Cause of : Myocardial Infarction Hypertension Paternal Grandfather Hyperte nsion; Stroke Paternal Grandfather Stroke; Heart attack Paternal Grandmother Myocard ial Infarction; Cause of : Myocardial Infarction Hypertension Paternal Grandmother Hyperte nsion; Stroke Paternal Grandmother Stroke; Anesthesia problems Neg Hx Malig Hyperthermia Neg Hx Pseudochol deficiency Neg Hx Relation Name Status Comments Father Alive Maternal Grandmother Other Paternal Grandfather Paternal Grandmother Social History Tobacco Use Types Packs/Day Years Used Date Smoking Tobacco: Never Passive Smoke Exposure: Never Smokeless Tobacco: Never Tobacco Cessation:Counseling Given: Not Answered Alcohol Use Standard Drinks/Week Comments Yes 0 (1 standard drink = 0.6 oz pur e alcohol) Personal Safety Answer Date Recorded Have you ever been in or are you currently in a harmful physical or emotional relationship or is someone making you feel afraid or unsafe? 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 Gender Identity Female 01/25/2025 12:30 PM CDT Sexual Orientation Not on file Obstetrics History Last Filed Vital Signs Vital Sign Reading Time Taken Comments Blood Pressure 114/75 06/07/2023 1:30 PM CDT Pulse 97 06/07/2023 1:30 PM CDT Temperature 36.1 C (97 F) 06/07/2023 12:35 PM CDT Respiratory Rate 20 06/07/2023 1:30 PM CDT Oxygen Saturation 95% 06/07/2023 1:30 PM CDT Inhaled Oxygen Concentration - - Weight 49.9 kg (110 lb) 06/07/2023 10:28 AM CDT Height 157.5 cm (5' 2 ) 06/07/2023 10:28 AM CDT Body Mass Index 20.12 06/07/2023 10:28 AM CDT Plan of Treatment Health Maintenance Due Date Last Done Comments Cervical Cancer Screening 1986 Depression Screening 1986 Hepatitis C Screening 1986 DTaP/Tdap/Td Vaccine (1 - Tdap) 1997 Varicella Vaccines (1 of 2 - 13+ 2-dose series) 1999 Hepatitis B Screening 02/14/2004 Regular Well Visit/Exam 18-64 02/14/2004 Covid-19 Vaccine ( - 2023-2 5 season) 2024 12/30/2020, 12/09/2020 Influenza Vaccine (Season Ended) 2025 08/18/2023 HPV Vaccines Aged Out No longer eligi ble based on patient's age to complete this topic Pneumococcal vaccine <65 Aged Out No longer eligible based on patient's age to complete this topic Insurance [facility] [id number] [facility] [id number] [id number] Care Teams Windscreen Fitter Relationship Specialty Start Date End Date Jarod Aguila MD PCP - General 09/29/15
--- OUTSIDE RECORDS SUMMARY | 2025-02-10 08:43 | XMS_ITS | Clinical Summary ---
Author Organization [facility] Care Team Providers Care Supervisor Of Guidance And Testing Name Role Phone Unavailable Primary Care Provider Unavailabl e Social History Tobacco Use Types Packs/Day Years Used Date Smoking Tobacco: Never Assessed Comments Unknown Sex and Gender Information Value Date Recorded Sex Assigned at Not on file Legal Sex Female 10:13 AM CDT Gender Identity Not on file Sexual Orientation Not on file Plan of Treatment Health Maintenance Due Date Last Done Comments Hepatitis C Virus (HCV) Screening 1986 TdaP Immunization 1986 Hepatitis B Immunization (1 of 3 - 19+ 3-dose series) 2005 Pap Smear 2007 Cervical Cancer Screening (CCS) 02/14/2016 HPV/Cotest 02/14/2016 Influenza Immunization (#1) 2024 SARS-COV-2 Immunization ( season) 2024 Respiratory Syncytial Virus (RSV) Immunization (Adult) (1 - 1-dose 75+ series) 2061 Meningococcal Immunization (ACWY) Aged Out No longer eligible based on patient's age to complete this topic Pneumococcal Immunization Combined Aged Out No longer eligible based on patient's age to complete this topic Rotavirus Immunization Aged Out No lo nger eligible based on patient's age to complete this topic
--- OUTSIDE RECORDS SUMMARY | 2025-02-10 08:43 | XMS_ITS | Encounter Summary ---
Author Organization [facility] Address [address] [place] [address] Phone Care Team Providers Care Newspaper Photographer Name Role Phone Jarod Aguila MD Primary Care Provider [phone] Encounter Details Date Type Department Care Team (Late st Contact Info) Description 12/15/2017 Orders Only [facility] ProviderJulio MD [address] [place], [place] [id number] Social History Tobacco Use Types Packs/Day Years Used Date Smoking Tobacco: Never Alcohol Use Standard Drinks/Week Comments Yes 0 (1 standard drink = 0.6 oz pur e alcohol) Comments Unknown Sex and Gender Information Value Date Recorded Sex Assigned at Not on file 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 Historical Provider LAB BLOOD ORDERABLES Deborah l Result documented in this encounter Visit Diagnoses Not on filedocumented in this encounter Additional Health Concerns Infection Onset Date Last Indicated Resolved Time COVID: Suspected 09/08/2020 09/08/2020 09/08/2020 11:53 PM FINANCIAL AIDS OFFICER Respiratory Infection (KARLEE), contact + droplet Comment:Automatically added due to negative COVID-19 result. 09/08/2020 09/08/2020 09/22/2020 3:0 7 AM FINANCIAL AIDS OFFICER COVID: Suspected 10/27/2020 10/28/2020 10/29/2020 6:55 AM FINANCIAL AIDS OFFICER COVID19 10/28/2020 10/28/2020 11/11/2020 3:07 AM FINANCIAL AIDS OFFICER COVID: Suspected 08/30/2021 08/30/2021 08/31/2021 5:35 AM FINANCIAL AIDS OFFICER COVID: Suspected 10/25/2021 10/25/2021 10/25/2021 10:02 PM FINANCIAL AIDS OFFICER COVID: Suspected 07/16/2022 07/16/2022 07/17/2022 3:05 AM CDT COVID: Suspected 07/16/2022 07/16/2022 07/17/2022 7:38 AM CDT COVID19 07/16/2022 07/16/2022 07/26/2022 3:05 AM CDT COVID: Recovered Comment:Added based on recent COVID infection. 07/26/2022 07/26/2022 11/23/2022 3:[address] documented as of this encounter Care Teams Newspaper Photographer Relationship Specialty Start Date End Date Jarod Aguila MD PCP - General 09/29/15 documented as of this encounter
--- OUTSIDE RECORDS SUMMARY | 2025-02-10 08:43 | XMS_ITS | Referral Summary ---
Author Organization [facility] Healthcare Address [address] [place] [address] Care Team Providers Care Chemical Sales Representative Name Role Phone Jarod Aguila MD Primary Care Provider [phone] Encounters Date Type Department Care Team Description 01/25/2025 12:45 PM CDT Telemedicine [facility] Medical Group Virtual Care [address] [place] [phone] Shefali Centeno NP Acute non-recurrent pansinusitis (Primary Dx) 01/25/2025 Patient Self-Triage [facility] HealthCare/ Physicians [address] [place] [address] Mychart, Generic Provider from Last 3 Months Allergies No known active allergies Medications traMADol [...] mouth daily with lunch Active DULoxetine DR (CYMBALTA) 60 mg capsule Take 1 capsule (60 [...] 03/15/2023 Carpal tunnel syndrome on right 03/15/2023 Social History Tobacco Use Types Packs/Day Years [...] on file 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
--- OUTSIDE RECORDS SUMMARY | 2025-02-10 08:43 | XMS_ITS | Patient Health Record ---
Author Organization [facility] Address [address] [facility] [address] [place] [address] Care Team Providers Care Public Records Researcher Name Role Phone Toño PARDO, Jarod Primary Care Provider Unavail able Michele Champion Unavailable [phone] Michele Champion MD Unavailable Unavailabl e Allergies No Known Allergies Reason For Referral No Information Medications Medication SIG (Take, Route, Frequency, Duration) Notes Start Date End Date Status Stress B Complex W/C oral *Reorder fr om Medispan for eRx and Interaction Alerts* Active Apple Cider Vinegar oral *Pick strength-form from Medispan for eRX* Active Cholecalciferol 50 MCG (1999 UT) Oral Active olu root xt-fennel sd xt oral *Reorder from Medispan for eRx and Interaction Alerts* Active traMADol HCl 50 MG Oral A ctive ZyrTEC Allergy 10 MG Oral Active Celecoxib 200 MG 1 BID prn Oral 07/08/2020 Active DULoxetine HCl 60 MG TAKE 1 CAPSULE(60 MG) BY MOUTH EVERY DAY Oral 06/02/2020 Active Problems Problem Type SNOMED Code ICD Code Onset Dates Problem Status W/U Status Risk Notes Problem Joint pain (87242823) Pain in unspecified joint (M25.50) Active confirmed Plan Of Treatment No Information Insurance Providers Payer Name Payer Address Payer Phone Subscriber Number Group Number Insured Name Patient Relationship to Insured Coverage Start Date Coverage End Date [employer] - [employer] [address] [place], [place] [id number] Elina Ackerman Self - patient is the insured 6 Medical (General) History Surgical History Surgery Date(Month/Year) ; 2016-04-13 tonsilectomy; 2016-04-13
[2025-02-10 08:53] LABS: Basophils Percent Auto 0.6 % (0.2-1.2); Eosinophils Absolute Auto 0.1 K/mm3 (0-0.3); Eosinophils Percent Auto 2.2 % (0-4.4); Hematocrit 42.5 % (37.0-47.0); Hemoglobin 13.9 g/dL (12.0-15.0); Immature Granulocyte Absolute 0.01 K/mm3 (0.00-0.031); Immature Granulocyte Percent A 0.2 % (0-0.5); Lymphocytes Absolute Auto 2.33 K/mm3 (0.9-3.2); Lymphocytes Percent Auto 47.1 % (18.3-44.2); Mean Corpuscular HGB Conc 32.7 g/dl (32-36); Mean Corpuscular Hemoglobin 29.4 pg (26-34); Mean Corpuscular Volume 89.9 fl (80-100); Mean Platelet Volume 11.3 fl (7.4-10.4); Monocytes Absolute Auto 0.5 K/mm3 (0.1-0.6); Monocytes Percent Auto 9.7 % (2.6-8.5); Neutrophils Percent Auto 40.2 % (45.5-73.1); Platelet Count Result 255 k/mm3 (150-375); Red Blood Count 4.73 M/mm3 (4.2-5.4); Red Cell Distribution Width 12.1 % (11.5-14.5)
[2025-02-10 08:54] LABS: Alanine Aminotransferase 40 U/L (6-35); Albumin Level 4.4 g/dL (3.5-5.1); Alkaline Phosphatase 70 U/L (38-126); Anion Gap 7 mmol/L (4-12); Aspartate Amino Transferase 49 U/L (14-36); Bilirubin,Total 0.7 mg/dL (0.2-1.3); Blood Urea Nitrogen 10 mg/dL (7-17); Calcium 8.8 mg/dL (8.4-10.2); Carbon Dioxide 30 mmol/L (22-30); Chloride 101 mmol/L (98-107); Cholesterol 152 mg/dL (0-200); Estimated Glomerular Filt Rate > 60; Glucose 81 mg/dL (65-110); HDL Direct 62 mg/dL; Potassium 3.6 mmol/L (3.4-5.0); Sodium 138 mmol/L (137-145); Triglycerides 103 mg/dL (<150)
[2025-02-10 09:04] LABS: LDL Cholesterol Direct 63 mg/dL
== END 2025-02-10 08:29 | disposition home or self-care (01) ==
LOC: ANHLAB 08:29
PROVIDERS: PCP Family Medicine; Visit Provider Nurse Practitioner Adult Health
DX: R74.8 Abnormal levels of other serum enzymes (principal); R53.83 Other fatigue; M35.9 Systemic involvement of connective tissue, unspecified; Z13.220 Encounter for screening for lipoid disorders
CPT/HCPCS: 36415; 80053; 80061; 84443; 85025

== ENCOUNTER 2025-03-13 16:50 | Outpatient (CLI) | payer OTHER, SELFPAY ==
--- OUTSIDE RECORDS SUMMARY | 2025-03-13 16:53 | XMS_ITS | Patient Health Record ---
Author Organization [facility] Address [address] [facility] [facility] [address] [place] [address] Care Team Providers Care Python Programmer Name Role Phone Toño PARDO, Jarod Primary Care Provider Unavail able Michele Champion Unavailable [phone] iMchele Champion MD Unavailable Unavailabl e Allergies No [...] W/U Status Risk Notes Problem Joint pain (33305901) Pain in unspecified joint (M25.50) Active confirmed Plan Of Treatment No Information Insurance Providers Payer Name Payer Address Payer Phone Subscriber Number Group Number Insured Name Patient Relationship to Insured Coverage Start Date Coverage End Date [employer] - [employer] [address] [place], [place] [id number] Elina Ackerman Self - patient is the insured 6 Medical (General) History Surgical History Surgery Date(Month/Year) ; 2016-04-13 tonsilectomy; 2016-04-13
--- OUTSIDE RECORDS SUMMARY | 2025-03-13 16:53 | XMS_ITS | Clinical Summary ---
Author Organization [facility] Care Team Providers Care Jewelry Enameler Name Role Phone Unavailable Primary Care Provider [...]
[2025-03-13 17:04] LABS: Basophils Percent Auto 0.5 % (0.2-1.2); Eosinophils Absolute Auto 0.1 K/mm3 (0-0.3); Eosinophils Percent Auto 1.3 % (0-4.4); Hematocrit 41.3 % (37.0-47.0); Hemoglobin 14.1 g/dL (12.0-15.0); Immature Granulocyte Absolute 0.01 K/mm3 (0.00-0.031); Immature Granulocyte Percent A 0.2 % (0-0.5); Lymphocytes Absolute Auto 2.21 K/mm3 (0.9-3.2); Lymphocytes Percent Auto 40.4 % (18.3-44.2); Mean Corpuscular HGB Conc 34.1 g/dl (32-36); Mean Corpuscular Hemoglobin 30.3 pg (26-34); Mean Corpuscular Volume 88.8 fl (80-100); Mean Platelet Volume 11.1 fl (7.4-10.4); Monocytes Absolute Auto 0.5 K/mm3 (0.1-0.6); Neutrophils Absolute Auto 2.7 K/mm3 (1.3-6.7); Neutrophils Percent Auto 48.6 % (45.5-73.1); Platelet Count Result 258 k/mm3 (150-375); Red Blood Count 4.65 M/mm3 (4.2-5.4); Red Cell Distribution Width 11.9 % (11.5-14.5); White Blood Count 5.5 K/mm3 (4.5-10.0)
[2025-03-13 17:17] LABS: Alanine Aminotransferase 53 U/L (6-35); Albumin Level 4.7 g/dL (3.5-5.1); Alkaline Phosphatase 72 U/L (38-126); Amylase 69 U/L (30-110); Aspartate Amino Transferase 31 U/L (14-36); Bilirubin,Total 0.3 mg/dL (0.2-1.3); Lipase 52 U/L (23-300)
[2025-03-13 18:55] LABS: Hepatitis B Surface Antigen Negative (Negative)
[2025-03-13 19:01] LABS: HAV RESULT Negative (Negative); Hepatitis B Core IgM Result Negative (Negative)
[2025-03-13 19:12] LABS: Hepatitis C Virus Antibody Negative (Negative)
[2025-03-14 04:23] LABS: GGT 58 U/L (3-50)
== END 2025-03-13 16:51 | disposition home or self-care (01) ==
PROVIDERS: PCP Family Medicine; Referring Provider Obstetrics & Gynecology Gynecology; Visit Provider Nurse Practitioner Adult Health
DX: R79.89 Other specified abnormal findings of blood chemistry (principal); R53.83 Other fatigue; E55.9 Vitamin D deficiency, unspecified
CPT/HCPCS: 36415; 80074; 80076; 82150; 82977; 83690; 85025

== ENCOUNTER 2025-03-24 08:13 | Outpatient (CLI) | payer OTHER, SELFPAY ==
--- NOTE | ~2025-03-24 | US_ITS ---
Abdominal Sonogram: Real-time sonographic imaging of the abdomen was performed. Clinical History: Abnormal findings of blood chemistry Findings: The liver appears mildly heterogeneous with no evidence of mass lesion or bile duct dilata tion. Main portal vein demonstrates normal direction of flow. The spleen is normal in size without ev idence of focal lesion. The gallbladder is absent, compatible prior cholecystectomy. The common bile duct measures 6 mm. The visualized pancreas, aorta, and IVC are unremarkable. The right kidney segundo sures 10.0 cm in length and the left kidney measures 10.3 cm. There is no hydronephrosis or renal ca lculus. Impression: Suspected fatty infiltration of liver. Status post cholecystectomy. Reviewed, dictated and finalized at location . Impression: Suspected fatty infiltration of liver. Status post cholecystectomy.
== END 2025-03-24 08:14 | disposition home or self-care (01) ==
LOC: MICIMG 08:14
PROVIDERS: PCP Family Medicine; Visit Provider Nurse Practitioner Adult Health
DX: R79.89 Other specified abnormal findings of blood chemistry (principal); R74.8 Abnormal levels of other serum enzymes; Z90.49 Acquired absence of other specified parts of digestive tract
CPT/HCPCS: 76700